=== PATIENT | male | born 1995 | race Caucasian/White ===

== ENCOUNTER 2022-12-07 21:01 | Emergency (ER) | payer OTHER ==
[~2022-12-07] VITALS: Ht 165.1 cm; Wt 89.1 kg
[2022-12-07 21:20] VITALS: TEMP 98.7
[2022-12-07] MEDS ORDERED: OxyCODONE HCL 5 MG IR TABLET PO ONE (22:15)
[2022-12-07 23:44] VITALS: BP 128/70; PULSE 80; RESP 16
== END 2022-12-08 00:30 ==
LOC: EMS 21:01
DX: S82.141A Displaced bicondylar fracture of right tibia, initial encounter for closed fracture (principal); S82.831A Other fracture of upper and lower end of right fibula, initial encounter for closed fracture; F17.210 Nicotine dependence, cigarettes, uncomplicated; W19.XXXA Unspecified fall, initial encounter; Y93.67 Activity, basketball; Y92.89 Other specified places as the place of occurrence of the external cause; Y99.8 Other external cause status
CPT/HCPCS: 29505; 99284; 73562-TC; 73590-TC; 73610-TC; Z7502; Z7610